=== PATIENT | female | born 1970 | race Caucasian/White ===

== ENCOUNTER 2017-04-10 13:15 | Emergency (ER) | payer OTHER ==
[~2017-04-10] VITALS: Ht 175.3 cm; Wt 140.0 kg
[~2017-04-10 13:15] MED LIST: CYCL10TA PO; FURO1TAB62 PO; FURO20TA PO; LEVO100T5 PO; LEVO125T4 PO; LEVO137T2 PO; MEDR4PAK PO
[2017-04-10 13:17] VITALS: BP 164/80; PULSE 61; RESP 16; TEMP 98.3; O2SAT 96
[2017-04-10] MEDS ORDERED: DEXAMETHASONE SOD PHOS 4 MG/ML VIAL IM ONE (13:45)
[2017-04-10] MEDS ORDERED: CYCL10TA PO (13:55)
[2017-04-10] MEDS ORDERED: MEDR4PAK PO (13:55)
--- NOTE | 2017-04-10 13:55 | PD ---
HPI Chief Complaint: Musculoskeletal Complaint Time Seen by Provider: 13:36 Travel History International Travel<30 days: No Contact w/Intl Traveler<30days: No Traveled to known affect area: No History of Present Illness HPI 46-year-old female here for evaluation of left low back pain that radiates down into the leg. Patient denies injury or trauma. Symptom onset 1 day. History of sciatica with similar pain in the past. She denies fever, incontinence, saddle anesthesia, paresthesia or weakness of the extremities. She reports she usually comes to the ER with each flare is given a shot which relieved symptoms. Symptom severity is moderate and slightly relieved with rest. PFSH Past Medical History Diminished Hearing: No Immunizations Current: Yes Thyroid Disease: Yes (HYPOTHYROIDISM) ?: Not LMP: LAST MONTH : 3 Para: 3 Tubal Ligation: Yes Past Surgical History Abdominal Surgery: Yes (HERNIA REPAIR) Section: Yes Social History Alcohol Use: Yes (occ) Tobacco Use: No Substance Use: No Allergies-Medications (Allergen,Severity, Reaction): Coded Allergies: No Known Allergies (Verified Adverse Reaction, Unknown, 04/10/17) Reported Meds & Prescriptions Reported Meds & Active Scripts Active Lasix (Furosemide) 20 Mg Tab 20 Mg PO BID Levothyroxine (Levothyroxine Sodium) 125 Mcg Tab 225 Mcg PO DAILY Review of Systems Except as stated in HPI: all other systems reviewed are Neg General / Constitutional: No: Fever Physical Exam Narrative GENERAL: Well-nourished, well-developed patient. She is ambulating with a steady gait. SKIN: Focused skin assessment warm/dry. HEAD: Normocephalic. EYES: No scleral icterus. No injection or drainage. NECK: Supple, trachea midline. No JVD or lymphadenopathy. CARDIOVASCULAR: Regular rate and rhythm without murmurs, gallops, or rubs. RESPIRATORY: Breath sounds equal bilaterally. No accessory muscle use. GASTROINTESTINAL: Abdomen soft, non-tender, nondistended. MUSCULOSKELETAL: No cyanosis, or edema. 5/5 strength in lower extremity's. Normal sensation. 2+ dorsal pedis pulse. BACK: Tenderness to the left gluteal area. No midline spine tenderness. Without obvious deformity. No CVA tenderness. Data Data Last Documented VS Vital Signs Date Time Temp Pulse Resp B/P (MAP) Pulse Ox O2 Delivery O2 Flow Rate FiO2 04/10/17 13:17 98.3 61 16 164/80 (108) 96 Orders Orders Dexamethasone Inj (Decadron Inj) (04/10/17 13:45) [facility] Medical Decision Making Medical Screen Exam Complete: Yes Emergency Medical Condition: Yes Differential Diagnosis Sciatica, lumbar strain, DJD, other Narrative Course 46-year-old female here with left low back pain radiating down into the leg. Patient's history sciatica. The symptoms are similar to her previous flares. She has a normal neurologic exam. She will be given a shot of Decadron and reassess. Diagnosis Primary Impression: Sciatica of left side Referrals: [facility] Additional Instructions: Take the medication as prescribed. He may take [id number] Tylenol or Motrin as needed for pain. Avoid heavy lifting or strenuous activity. Follow-up with her doctor. Scripts Cyclobenzaprine (Flexeril) 10 Mg Tab 10 MG PO Q8HR Y for MUSCLE PAIN, #15 TAB 0 Refills Prov: Sonya Hoff 04/10/17 Methylprednisolone Dosepak (Medrol Dosepak) 4 Mg Dspk 4 MG PO DIRECTED, #1 DSPK 0 Refills Per Pharmacist direction Prov: Sonya Hoff 04/10/17 Disposition: 01 DISCHARGE HOME Condition: Stable Sonya Hoff Apr 10, 2017 13:55
== END 2017-04-10 14:01 | disposition home or self-care (01) ==
LOC: PHEFT 13:15
DX: M54.32 Sciatica, left side (principal); E03.9 Hypothyroidism, unspecified; Z79.899 Other long term (current) drug therapy
CPT/HCPCS: 96372; 99284; J1100